=== PATIENT | female | born 1930 | race Caucasian/White ===

== ENCOUNTER → 2016-06-09 | Outpatient (REF) | payer MEDICARE, BC ==
[2016-06-09 11:01] LABS: BASOPHILS % (AUTO) 1 % (0-2); EOSINOPHILS # (AUTO) 0.2 10^3uL; EOSINOPHILS % (AUTO) 2 % (0-4); MEAN CORPUSCULAR HEMOGLOBIN 27.2 PG (26.0-34.0); MEAN CORPUSCULAR HGB CONC 31.4 g/dL (31.0-37.0); MEAN CORPUSCULAR VOLUME 87 FL (80-100); MONOCYTES # (AUTO) 0.7 X10^3; MONOCYTES % (AUTO) 8 % (3-11); NEUTROPHILS # (AUTO) 6.3 X10^3; NEUTROPHILS % (AUTO) 77 % (51-67); PLATELET COUNT 243 10^3uL (150-450); WHITE BLOOD COUNT 8.16 10^3uL (4.0-11.0)
[2016-06-09 11:18] LABS: ALBUMIN 4.4 g/dL (3.4-5.0); ANION GAP 12.1 MEQ/L (3-15); CALCULATED IONIZED CALCIUM 4.5 mg/dL (3.8-4.6); TOTAL PROTEIN 7.3 g/dL (6.4-8.5)
== END ==
LOC: LAB 10:15
PROVIDERS: ATTEND Family Medicine
DX: D64.89 Other specified anemias (principal); E78.4 Other hyperlipidemia; I10 Essential (primary) hypertension; Z95.2 Presence of prosthetic heart valve
CPT/HCPCS: 80053; 85025; 85610

== ENCOUNTER → 2016-06-23 | Outpatient (CLI) | payer MEDICARE, BC ==
[2016-06-23 12:30] LABS: MEAN CORPUSCULAR HEMOGLOBIN 28.7 PG (26.0-34.0); MEAN CORPUSCULAR HGB CONC 32.3 g/dL (31.0-37.0); MEAN CORPUSCULAR VOLUME 89 FL (80-100); MEAN PLATELET VOLUME 10.2 FL (6.0-9.5); PLATELET COUNT 234 10^3uL (150-450); WHITE BLOOD COUNT 14.91 10^3uL (4.0-11.0)
[2016-06-23 12:43] LABS: BAND NEUTROPHILS % 2 % (0-6); EOSINOPHILS % 0 % (0-4); LYMPHOCYTES # 0.6 #; MONOCYTES # 1.1 #; MONOCYTES % 8 % (3-11); RBC MORPH NORMAL (NORMAL); SEGMENTED NEUTROPHILS % 86 % (51-67); TOTAL CELLS COUNTED 100
== END ==
LOC: RAD 11:52
PROVIDERS: ATTEND Family Medicine
DX: Z51.81 Encounter for therapeutic drug level monitoring (principal); Z79.01 Long term (current) use of anticoagulants; R05 Cough
CPT/HCPCS: 36415; 71020; 85025; 85610

== ENCOUNTER → 2016-08-09 | Outpatient (REF) | payer MEDICARE, BC ==
[~2016-08-09] MED LIST: CALC-701 PO; CHOL200012 PO; CITA10TA12 PO; FEXO-14 PO; FLUT1DIS2 IH; FRSM20T PO; GFN600TCR PO; HYDR-3702 PO; HYDROXYSUT PO; LVT.05T PO; NF-VAL40T PO; PANT40TA3 PO; POTA10TA10 PO; SMV10T PO; SUCR1TAB29 PO; WRF2T PO
[2016-08-09 16:54] LABS: BASOPHILS % (AUTO) 0 % (0-2); EOSINOPHILS % (AUTO) 0 % (0-4); LYMPHOCYTES # (AUTO) 0.9 X10^3; MEAN CORPUSCULAR HEMOGLOBIN 29.8 PG (26.0-34.0); MEAN CORPUSCULAR HGB CONC 32.6 g/dL (31.0-37.0); MEAN CORPUSCULAR VOLUME 91 FL (80-100); MEAN PLATELET VOLUME 10.5 FL (6.0-9.5); MONOCYTES # (AUTO) 0.8 X10^3; MONOCYTES % (AUTO) 6 % (3-11); NEUTROPHILS # (AUTO) 10.9 X10^3; NEUTROPHILS % (AUTO) 85 % (51-67); PLATELET COUNT 274 10^3uL (150-450)
[2016-08-09 17:08] LABS: ANION GAP 15.5 MEQ/L (3-15)
== END ==
LOC: LAB 06-23 12:06
PROVIDERS: ATTEND Family Medicine
DX: Z51.81 Encounter for therapeutic drug level monitoring (principal); Z79.01 Long term (current) use of anticoagulants; I10 Essential (primary) hypertension; Z95.2 Presence of prosthetic heart valve; E78.4 Other hyperlipidemia
CPT/HCPCS: 80048; 85025; 85610